=== PATIENT | female | born 1960 | race Caucasian/White ===

== ENCOUNTER → 2016-05-09 | Outpatient (CLI) | payer OTHER ==
[~2016-05-09] MED LIST: AMLODIPINE5 M1 PO; ATORVASTATIN CA20 MG PO; K-DUR 2020 MEQ PO; LISINOPRIL 5MG T5 MG PO; PLAVIX75 M1 PO; PROAIR HFA0.09 MG/AC IH; SYMBICORT 10.10.2 ML IH; THEOPHYLLINE400 M1 PO
[2016-05-09 10:20] LABS: HEMOGLOBIN 14.8 g/dL (12.2-16.2); LYMPH # 1.5 K/mm3 (0.7-4.5); LYMPH % 18.2 % (10-50.0)
[2016-05-09 13:42] LABS: BUN 13 mg/dL (7-18)
[2016-05-09 13:44] LABS: GFR (ESTIMATED) 75 ML/MIN (59-)
== END ==
LOC: LAB 10:08
PROVIDERS: Physician Assistant
DX: E78.5 Hyperlipidemia, unspecified (principal)

== ENCOUNTER → 2016-08-23 | Outpatient (CLI) | payer OTHER ==
--- NOTE | 2016-08-23 14:19 | RADIOLOGY REPORT PS360 ---
History and Indications: Coronary artery disease, hypertension, chest pain, shortness of breath and palpitations patient. Procedure: Patient received 0.4 mg of Lexiscan, resting heart rate of 48% resting blood pressure 1 77/101 , with Lexiscan maximum heart rate achieved was 65 bpm is less than 85% of the maximum predicted heart rate and a blood pressure was 166/91. With Lexiscan patient complained of shortness of breath stomach discomfort and chest pain. Electrocardiogram: Resting electrocardiogram showed sinus rhythm, with Lexiscan there is less than 1.[address] segment depression noted from the baseline EKG. The EKG portion of the Lexiscan is nondiagnostic. Cardiac stress and resting SPECT images: Cardiac stress and resting SPECT images were obtained using technetium 99 Myoview 10.0 MCI at rest, and 30.4 mCi at stress. Gated SPECT further analysis of segmental wall motion and calculation of the ejection fraction was also done. Cardiac stress and resting SPECT images show a mild fixed defect in the anterior wall with normal contractility in the gated SPECT is likely secondary to soft tissue attenuation, no reversible ischemia seen. Computer derived ejection fraction is 60 percent with no obvious regional wall motion abnormality, right ventricle is normal size and contractility. Conclusion: 1. The EKG portion of the Lexiscan is nondiagnostic. 2. No obvious scintigraphic evidence of reversible ischemia seen, computer derived ejection fraction is 60% with no obvious regional wall motion abnormality. Right ventricle is normal size and contractility.
== END ==
LOC: RAD 06:30
DX: R07.9 Chest pain, unspecified (principal); R00.2 Palpitations; I25.10 Atherosclerotic heart disease of native coronary artery without angina pectoris
CPT/HCPCS: A9502; J2785

== ENCOUNTER → 2017-01-06 | Outpatient (CLI) | payer OTHER | LOC: RT 13:44 | DX: R07.9 Chest pain, unspecified (principal); I49.3 Ventricular premature depolarization; I20.9 Angina pectoris, unspecified; J45.909 Unspecified asthma, uncomplicated ==

== ENCOUNTER → 2017-01-24 | Outpatient (CLI) | payer OTHER ==
[2017-01-24 18:14] LABS: HEMOGLOBIN 14.1 g/dL (12.2-16.2); LYMPH # 1.2 K/mm3 (0.7-4.5); LYMPH % 23.9 % (10-50.0)
[2017-01-24 19:17] LABS: BUN 19 mg/dL (7-18)
[2017-01-24 19:24] LABS: GFR (ESTIMATED) 65 ML/MIN (59-)
[2017-01-26 08:46] LABS: Vitamin D, 25-Hydroxy 33.3 ng/mL (30.0-100.0)
[2017-01-26 09:38] LABS: Folate (Folic Acid) 12.4 ng/mL (>3.0)
== END ==
LOC: LAB 17:27
PROVIDERS: Physician Assistant
DX: E78.5 Hyperlipidemia, unspecified (principal); M62.838 Other muscle spasm

== ENCOUNTER → 2017-03-29 | Outpatient (CLI) | payer OTHER ==
--- NOTE | 2017-03-29 15:04 | RADIOLOGY REPORT PS360 ---
CT CHEST W/O CONTRAST HISTORY: LEFT SIDED CHEST WALL PAIN,SHORTNESS OF BREATH ORDERING PHYSICIAN: NACHO HUTTON MD PATIENT AGE: 56 years TECHNIQUE: Helical acquisition obtained without contrast.. Axial, sagittal, and coronal reformatted images are generated and reviewed. COMPARISON: None FINDINGS: HEART: Unremarkable. Normal heart size. No significant pericardial effusion. MEDIASTINAL AND HILAR STRUCTURES: No mediastinal or hilar mass evident. No dominant adenopathy. Vascular: Limited evaluation without contrast. No obvious aortic aneurysm. Pulmonary arteries not adequately evaluated without contrast. They do not appear enlarged LUNGS: Unremarkable. No mass or consolidation. PLEURAL SPACES: No significant effusion. No evidence of pneumothorax. BONY STRUCTURES: No acute bony abnormalities apparent small sclerotic focus is present in the lateral aspect of the left seventh rib nonspecific LYMPH NODES: No enlarged lymph nodes evident UPPER ABDOMEN: Unremarkable ADDITIONAL FINDINGS: No other significant abnormalities IMPRESSION: Negative CT of the chest without contrast, no acute finding
[2017-03-29 15:22] VITALS: BP 118/70
[2017-03-29 15:23] VITALS: BP 138/80
== END ==
LOC: RT 12:52
DX: J45.909 Unspecified asthma, uncomplicated (principal); R06.02 Shortness of breath

== ENCOUNTER → 2017-04-12 | Outpatient (CLI) | payer OTHER | LOC: RT 08:00 | DX: R07.9 Chest pain, unspecified (principal); R06.00 Dyspnea, unspecified; I25.10 Atherosclerotic heart disease of native coronary artery without angina pectoris; I10 Essential (primary) hypertension; E78.5 Hyperlipidemia, unspecified; J44.9 Chronic obstructive pulmonary disease, unspecified; I20.9 Angina pectoris, unspecified ==